=== PATIENT | female | born 1985 | race African-American/Black ===

== ENCOUNTER 2018-03-15 16:34 | Emergency (ER) | payer OTHER ==
[~2018-03-15] VITALS: Ht 162.6 cm; Wt 105.2 kg
[~2018-03-15 16:34] MED LIST: IBUPROFEN 600600 M1 PO; NOHOMEMEDICATIONS
[2018-03-15] MEDS ORDERED: CIPRO500 M1 PO (16:55)
[2018-03-15] MEDS ORDERED: ZOLOFT50 MG PO (16:58)
[2018-03-15] MEDS ORDERED: ANTABUSE250 M1 PO (16:58)
[2018-03-15] MEDS ORDERED: TOPAMAX 100 MG100 MG PO (16:58)
[2018-03-15 17:52] VITALS: BP 118/79
== END 2018-03-15 17:50 | disposition home or self-care (01) ==
LOC: ER 16:34
DX: S91.332A Puncture wound without foreign body, left foot, initial encounter (principal); F17.210 Nicotine dependence, cigarettes, uncomplicated; W45.0XXA Nail entering through skin, initial encounter; Y93.89 Activity, other specified; Y92.89 Other specified places as the place of occurrence of the external cause; Y99.8 Other external cause status